=== PATIENT | male | born 1990 | race Caucasian/White ===

== ENCOUNTER 2022-04-26 12:04 | Emergency (ER) | payer SELFPAY ==
[~2022-04-26] VITALS: Ht 167.6 cm; Wt 90.3 kg
[2022-04-26 12:09] VITALS: BP 156/104
--- NOTE | 2022-04-26 12:14 | NUR ---
PT AMB TO BED 4
--- NOTE | 2022-04-26 12:24 | NUR ---
32 y/o male bib self with c/o pain to RLQ that radiates to right side of flank x today. Patient's pain level is 9/10 sharp. Patient denies any nuaes, vomiting, diarrhea. Denies any sick contacts or change in food. Denies any changes to bowel movements. Medical History: Denies NKDA
--- NOTE | 2022-04-26 12:26 | NUR ---
Dr. Quinn evaluating patient at bedside.
[2022-04-26] MEDS ORDERED: KETOROLAC 30 MG/ML VIAL IVP ONE (12:30)
--- NOTE | 2022-04-26 12:37 | NUR ---
Patient was taken to imaging via wheelchair.
--- NOTE | 2022-04-26 12:49 | NUR ---
Patient returned from imaging.
[2022-04-26 13:18] LABS: BASOPHILS % (AUTO) 0.3 % (0.0-2.0); EOSINOPHILS % (AUTO) 0.5 % (0.0-4.0); LYMPHOCYTES # (AUTO) 1.5 K/uL (2.0-11.5); LYMPHOCYTES % (AUTO) 15.9 % (20.5-51.1); MEAN CORPUSCULAR HEMOGLOBIN 31 pg (27-31); MEAN CORPUSCULAR HGB CONC 35 g/dL (33-37); MEAN CORPUSCULAR VOLUME 88.2 fL (80-94); MONOCYTES # (AUTO) 0.4 K/uL (0.8-1.0); MONOCYTES % (AUTO) 4.2 % (1.7-9.3); NEUTROPHILS # (AUTO) 7.6 K/uL (1.8-7.7); NEUTROPHILS % (AUTO) 79.1 % (42.2-75.2); PLATELET COUNT (AUTO) 167 K/uL (140-450); RED BLOOD CELL COUNT(AUTO) 5.21 MIL/uL (4.20-6.10); RED CELL DISTRIBUTION WIDTH 12.9 % (11.6-13.7); WHITE BLOOD COUNT (AUTO) 9.6 K/uL (4.8-10.8)
[2022-04-26 13:44] LABS: ANION GAP 14.4 (8-16); CARBON DIOXIDE 23.6 mmol/L (21-32); CREATININE 1.2 mg/dL (0.6-1.3); TOTAL BILIRUBIN 0.6 mg/dL (0.0-1.0)
[2022-04-26] MEDS ORDERED: NAPR-1704 PO (13:44)
[2022-04-26] MEDS ORDERED: TAMS0.4C96 PO (13:44)
[2022-04-26] MEDS ORDERED: KETOROLAC 30 MG/ML VIAL ONE (13:47)
[2022-04-26] MEDS ORDERED: MAGNESIUM OXIDE 400 MG TAB PO ONE (14:00)
[2022-04-26] MEDS ORDERED: POTASSIUM CHLORIDE 20% 40 MEQ/15 ML UDC PO ONE (14:00)
[2022-04-26 14:24] LABS: APPEARANCE,URINE CLEAR (CLEAR); BILIRUBIN,URINE NEGATIVE (NEGATIVE); BLOOD, URINE 3+ (NEGATIVE); COLOR,URINE YELLOW (YELLOW); LEUKOCYTE ESTERASE ,URINE NEGATIVE (NEGATIVE); NITRITE, URINE NEGATIVE (NEGATIVE); UGLUCOSE NEGATIVE (NEGATIVE)
[2022-04-26 14:45] LABS: OTHER CASTS, URINE None Seen /LPF (None Seen); RBC,URINE 11-20 (MOD) /HPF (0-5); WBC,URINE 0-5 /HPF (0-5)
[2022-04-26 14:58] VITALS: BP 107/72
--- NOTE | 2022-04-26 14:58 | NUR ---
Patient discharged with v/s stable. Written and verbal after care instructions given. Patient alert, oriented and verbalized understanding of instructions. Ambulatory with steady gait. All questions addressed prior to discharge. ID band removed. Patient advised to follow up with PMD. Rx of Naproxen and Tamulosin given. Opportunity to ask questions provided and answered.
--- NOTE | 2022-04-26 14:59 | NUR ---
Chart checked and completed. The patient's care was reviewed and supervised by Delia Lima RN.
== END 2022-04-26 14:58 | disposition home or self-care (01) ==
LOC: MED 12:04
DX: N23 Unspecified renal colic (principal); Z79.899 Other long term (current) drug therapy; Z79.1 Long term (current) use of non-steroidal anti-inflammatories (NSAID)
CPT/HCPCS: 36415; 74176; 80053; 81001; 83690; 85025; 96374; 99284; J1885